=== PATIENT | female | born 1950 | race Caucasian/White ===

== ENCOUNTER 2018-08-14 03:03 | Emergency (ER) | payer MEDICARE, BC ==
[2018-08-14] MEDS ORDERED: Acetaminophen/oxyCODONE 325-5 MG Tab PO ONE (04:05)
[2018-08-14] MEDS ORDERED: Ketorolac 60 MG/2 ML SDV IM ONE (04:05)
--- NOTE | 2018-08-14 04:10 | EDM.PDOC ---
ED HPI GENERAL MEDICAL PROBLEM - General Chief Complaint: Lower Extremity Injury/Pain Stated Complaint: RIGHT LEG/HIP PAIN Time Seen by Provider: 08/14/18 04:07 Source of Information: Reports: Patient History Limitations: Reports: No Limitations - History of Present Illness INITIAL COMMENTS - FREE TEXT/NARRATIVE: Pt is here visiting her [place] and she suddenly yesterday developed severe pain in the rt buttock with pain extending down the lateral aspect of the rt leg. Onset: Other ( started yesterday. ) Duration: Hour(s): Location: Reports: Lower Extremity, Right Associated Symptoms: Reports: No Other Symptoms right hip Pain Score (Numeric/FACES): 10 - Related Data Allergies Allergy/AdvReac Type Severity Reaction Status Date / Time sunflower oil Allergy Wheezing Verified 08/14/18 03:37 Home Meds: Home Meds Furosemide [Lasix] 40 mg PO BID 08/14/18 [History] Insulin Aspart [NovoLOG] 20 unit SUBCUT BID 08/14/18 [History] Insulin Degludec [Tresiba] 48 unit SQ DAILY 08/14/18 [History] Metoprolol Succinate 50 mg PO BID 08/14/18 [History] Simvastatin [Zocor] 20 mg PO BEDTIME 08/14/18 [History] metFORMIN [Glucophage] 1,000 mg PO BIDMEALS 08/14/18 [History] Past Medical History HEENT History: Reports: Impaired Vision Cardiovascular History: Reports: High Cholesterol, Hypertension HAT [employer] History: Reports: Endocrine/Metabolic History: Reports: Diabetes, Type II, Obesity/BMI 30+ Dermatologic History: Reports: Cellulitis - Infectious Disease History Infectious Disease History: Reports: Chicken Pox, Mumps - Past Surgical History Female Surgical History: Reports: Hysterectomy, Salpingo-Oophorectomy Musculoskeletal Surgical History: Reports: Shoulder Surgery Social & Family History - Tobacco Use Smoking Status *Q: Never Smoker - Caffeine Use Caffeine Use: Reports: Coffee, Soda - Recreational Drug Use Recreational Drug Use: No Review of Systems - Review of Systems Review Of Systems: See Below Constitutional: Reports: No Symptoms Eyes: Reports: No Symptoms Ears: Reports: No Symptoms Nose: Reports: No Symptoms Mouth/Throat: Reports: No Symptoms Respiratory: Reports: No Symptoms Cardiovascular: Reports: No Symptoms GI/Abdominal: Reports: No Symptoms Musculoskeletal: Reports: Other ( acute pain in the rt buttock and going down the lateral asopect of the rt leg. ) ED EXAM, GENERAL - Physical Exam Exam: See Below Free Text/Narrative:: pt arrived with acute pain in the rt buttock area with pain radiating down the lateral aspect of the rt leg. Exam Limited By: No Limitations General Appearance: Alert, Anxious, Moderate Distress Ears: Normal TMs Nose: Normal Inspection Throat/Mouth: Normal Inspection Head: Atraumatic Neck: Normal Inspection Respiratory/Chest: No Respiratory Distress Extremities: Other (pt is tender to palpate over the rt buttock area. She has a positive straight leg raising sign. ) Neurological: Alert, Oriented, Normal Cognition Psychiatric: Normal Affect Course - Vital Signs Last Recorded V/S: Last Vital Signs Temp 35.3 C 08/14/18 03:42 Pulse 63 08/14/18 03:42 Resp 16 08/14/18 03:42 BP 172/75 H 08/14/18 03:42 Pulse Ox 94 L 08/14/18 03:42 - Orders/Labs/Meds Orders: Active Orders 24 hr Category Date Time Status Lumbar Spine Min 4V [CR] Stat Exams 08/14/18 04:06 Taken Meds: Medications Discontinued Medications Generic Name Dose Route Start Last Admin Trade Name Freq PRN Reason Stop Dose Admin Ketorolac Tromethamine 60 mg 08/14/18 04:05 08/14/18 04:31 Toradol IM 08/14/18 04:06 60 mg ONETIME ONE Administration Oxycodone/Acetaminophen 1 tab 08/14/18 04:05 08/14/18 04:30 Percocet 325-5 Mg PO 08/14/18 04:06 1 tab ONETIME ONE Administration - Re-Assessments/Exams Free Text/Narrative Re-Assessment/Exam: 08/14/18 04:36 pt was given 60 mg of torodol and will take a percocet when she gets back to her motel. Her xrays do reveal interspace narrowing at L5-S1 08/14/18 04:39 Departure - Departure Time of Disposition: 04:37 Disposition: Home, Self-Care 01 Condition: Fair Clinical Impression: Sciatic leg pain - Discharge Information Referrals: PCP,None [Primary Care Provider] - Forms: ED Department Discharge Care Plan Goals: moist warm packs to the rt hip and low back area, sit in the hot tub, baclofen 10mg bid to relax muscles, naprosyn 500mg bid for 4-5 days, norco 5/325 q6h prn for severe pain #8 - My Orders Last 24 Hours: My Active Orders 08/14/18 04:06 Lumbar Spine Min 4V [CR] Stat - Assessment/Plan Last 24 Hours: My Active Orders 08/14/18 04:06 Lumbar Spine Min 4V [CR] Stat
--- NOTE | 2018-08-14 04:37 | CRLCR ---
INDICATION: Severe lumbar spine pain going down the side of the right leg TECHNIQUE: Lumbar spine radiograph 5 views COMPARISON: None FINDINGS: Bone: No acute fractures or aggressive bone lesions are identified. Grade 1 anterolisthesis of L4-5 is noted by 1 cm. Disc: Severe degenerative disc narrowing with endplate sclerosis present at T11-12. 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 Soft tissue: Unremarkable. No radiopaque foreign bodies are seen. IMPRESSION: 1. Grade 1 anterolisthesis of L4-5 is noted by 1 cm. Dictated by Mannie Mcduffie MD @ 08/14/2018 4:36:30 AM Dictated by: Mannie Mcduffie MD @ 08/14/2018 04:36:32 (Electronically Signed)
== END 2018-08-14 04:54 | disposition home or self-care (01) ==
LOC: JP.ED 03:03
DX: M54.31 Sciatica, right side (principal); E78.00 Pure hypercholesterolemia, unspecified; I10 Essential (primary) hypertension; E11.9 Type 2 diabetes mellitus without complications; Z79.4 Long term (current) use of insulin; Z79.899 Other long term (current) drug therapy
CPT/HCPCS: 72110; 96372; 99283; A9270; J1885